=== PATIENT | female | born 1970 | race Caucasian/White ===

== ENCOUNTER 2016-05-22 16:50 | Observation (INO) ==
[2016-05-22] MEDS ORDERED: 0.9 % Sodium Chloride 1,000 ML IVC ONE (17:12)
[2016-05-22] MEDS ORDERED: Vancomycin 1,000 MG VIAL IVPB ONE (17:12)
[2016-05-22] MEDS ORDERED: Lidocaine 1% 20 ML MDV INFILT ONE (17:14)
--- NOTE | 2016-05-22 17:48 | Emergency Department Note ---
Disposition Clinical Impression: Abscess of skin or subcutaneous tissue, Cellulitis and abscess of hand Disposition: Still a Patient Condition: Good Referrals: NO,PCP [Primary Care Provider] - Forms: ED Satisfaction Letter General Adult HPI - General Chief complaint: ED Skin/Abscess/Foreign Body Stated complaint: multiple abscess Time Seen by Provider: 05/22/16 17:00 Source: patient Limitations: no limitations Nursing Notes Reviewed: Yes Vital Signs Reviewed: Yes - History of Present Illness Pain Scale: 10 - Related Data Previous Rx's Medication Instructions Recorded HydrOXYzine Pamoate 25 mg PO TID PRN 4 Days 12/08/15 Pramoxine HCl [Dermarest Eczema] 56.7 gm TP QID PRN #120 ml 12/08/15 PredniSONE 5 mg PO DAILY 12 Days 12/08/15 Allergies Allergy/AdvReac Type Severity Reaction Status Date / Time No Known Allergies Allergy Verified 12/08/15 16:16 Past Medical History - Past Medical History Medical history: Reports: no medical history, non-contributory Psychiatric history: Reports: no psych history - Social History Smoking Status: Current some day smoker Smokeless Tobacco Status: No Alcohol use: Reports: none Drug use: Reports: IVDU Physical Exam - General Limitations: no limitations General appearance: alert Course Vital Signs Temperature 98.2 F 05/22/16 16:52 Pulse Rate 97 05/22/16 16:52 Respiratory Rate 18 05/22/16 16:52 Blood Pressure 147/99 05/22/16 16:52 O2 Sat by Pulse Oximetry 97 05/22/16 16:52 Temperature 98.2 F 05/22/16 16:52 Pulse Rate 97 05/22/16 16:52 Respiratory Rate 18 05/22/16 16:52 Blood Pressure 147/99 05/22/16 16:52 O2 Sat by Pulse Oximetry 97 05/22/16 16:52 Oxygen Delivery Oxygen Delivery Room Air Medical Decision Making - MDM Narrative Medical decision making narrative: I examined this patient and my medical decision-making was reviewed with the ONCOLOGY REGISTRAR/PA/Advanced Practice Nurse/Resident Physician. I agree with the documented findings, disposition and treatment plan as described except to the extent set forth below. Patient evaluated by myself and Dr. Garland. I agree with his evaluation and management plan, suprascapular patients today. Patient resents with multiple abscesses R arm and her leg. One on her calf looks like an I&D visitors she also some small ones on her arm. No CT1 or calf also make sure it is not deep and what appears. I did do I&D's here. Check some lab work. And then reassess. She will most likely need admission. We will then started on vancomycin here also. Check her tetanus status and then reassess. 1827 hrs.: I&D was done of both abscesses on her hand with janes pus returned. She also had one done on her right calf which also had janes pus returned. She has another large lesion on the anterior portion of her right man but this one Roger been I&D did not has drainage from the area. And out on a CT of her hand IV antibiotics started. - Lab Data Result diagrams: 05/22/16 18:40 Lab Results 05/22/16 Range/Units 18:40 WBC 25.1 H (4.3-11.1) K/mcL RBC 5.33 H (3.82-4.97) M/mcL Hgb 15.5 H (11.5-15.4) g/dL Hct 45.5 H (35.3-44.9) % MCV 85.4 (83.0-100.0) fL MCH 29.1 (28.0-33.3) pg MCHC 34.1 (31.6-35.5) g/dL RDW 12.8 (11.5-14.5) % Plt Count 535 H (140-400) K/mcL MPV 9.9 (9.4-12.4) fL Immature Gran % 0.6 (0-4) % Seg Neutrophils % 79.7 % Lymphocytes % 14.3 % Monocytes % 4.5 % Eosinophils % 0.6 % Basophils % 0.3 % Neutrophils # 20.0 H (1.6-8.9) K/mcL Lymphocytes # 3.6 (0.6-4.6) K/mcL Monocytes # 1.1 (0.0-1.3) K/mcL Eosinophils # 0.2 (0.0-0.6) K/mcL Basophils # 0.1 (0.0-0.2) K/mcL
--- NOTE | 2016-05-22 18:44 | Emergency Department Note ---
Disposition Clinical Impression: Cellulitis and abscess of hand Abscess of skin or subcutaneous tissue Qualifiers: Site of cutaneous abscess: extremity Site of cutaneous abscess of extremity: hand Laterality: right Qualified Code(s): L02.511 - Cutaneous abscess of right hand Disposition: Still a Patient Condition: Good Referrals: NO,PCP [Primary Care Provider] - Forms: ED Satisfaction Letter Skin/Abscess/FB HPI Chief complaint: ED Skin/Abscess/Foreign Body Stated complaint: multiple abscess Time Seen by Provider: 05/22/16 17:00 Source: patient Mode of arrival: ambulatory Limitations: no limitations Nursing Notes Reviewed: Yes Vital Signs Reviewed: Yes HPI Narrative: Patient presents emergency room for evaluation of abscess on her left hand and left wrist. She also has one on the inside of her right lower leg and the anterior aspect of her left man. Patient has had intermittent fevers and chills denies any cough, congestion denies chest measures about headache or vision changes. Main complaint of the abscesses and swelling in her left hand. Pt Subjective Complaint: abscess/boil Onset (ago): day(s) Tetanus Up to Date: yes (patient had said the shot 2 years ago) Location: L hand, LLE, RLE Severity: moderate Severity scale (1-10): 6 Quality: stabbing, sharp Consistency: constant Improves with: none Worsens with: palpation, movement Context: IVDA Associated symptoms: Reports: fever, chills, arthralgias Treatments prior to arrival: bandages, attempted to drain pus at home Previous Rx's Medication Instructions Recorded HydrOXYzine Pamoate 25 mg PO TID PRN 4 Days 12/08/15 Pramoxine HCl [Dermarest Eczema] 56.7 gm TP QID PRN #120 ml 12/08/15 PredniSONE 5 mg PO DAILY 12 Days 12/08/15 Allergies Allergy/AdvReac Type Severity Reaction Status Date / Time No Known Allergies Allergy Verified 12/08/15 16:16 All systems ED: reviewed and negative except as stated. Constitutional: Reports: fever, chills. Denies: weakness Cardiovascular: Denies: chest pain, palpitations, dyspnea on exertion Respiratory: Denies: cough, dyspnea, wheezes Gastrointestinal: Denies: abdominal pain, nausea, vomiting, diarrhea Genitourinary: Denies: urgency, dysuria, frequency Musculoskeletal: Denies: back pain, neck pain, joint swelling (Old) Integumentary: Reports: lesions Neurological: Denies: headache, weakness Past Medical History - Past Medical History Attestation: Yes The following information was validated with the patient. Source: patient Medical history: Reports: no medical history, non-contributory Psychiatric history: Reports: no psych history - Social History Smoking Status: Current some day smoker Smokeless Tobacco Status: No Alcohol use: Reports: none Drug use: Reports: IVDU Physical Exam - General Limitations: no limitations General appearance: alert - Head Head exam: atraumatic, normocephalic, normal inspection - Chest Chest inspection: Present: normal inspection, symmetric chest wall rise. Absent : tenderness - Respiratory Respiratory exam: Present: normal lung sounds bilaterally - Cardiovascular Cardiovascular exam: Present: regular rate, normal rhythm, normal heart sounds - Extremities Exam Extremities exam: Present: normal capillary refill, other (Patient has what appears to be an abscess on the dorsum of the left hand over the fourth metacarpal. She also has an abscess on the aspect of the wrist. There is concern for significant swelling distal to the flexor and extensor retinaculum. She does have capillary refill in the fingers but she has significant pain with extension of the fingers in extension of the wrist. Incision is still intact as within an necrotic area on the anterior aspect of the left man unable to visualize bone deep tissue involvement is visualized.) - Back Exam Back exam: Present: normal inspection, full ROM. Absent: tenderness - Neurological Exam Neurological exam: Present: alert, oriented X3, CN II-XII intact, normal gait - Psychiatric Psychiatric exam: Present: normal affect, normal mood - Skin Skin exam: Present: warm, dry, intact, normal color, other (See extremity note) Course Course Narrative: Patient seen and examined the time of arrival to the emergency room. See history of present illness. This is a 35-year-old female who has a history of IV drug abuse. She recently started using again approximately 3 weeks ago because she ran out of her Suboxone. Vital signs on presentation are stable she is afebrile. Patient has been complaining of fevers and chills at home but denies chest pain shortness of breath headache vision changes nausea vomiting or diarrhea. Main issue for her presentation here today is abscess formation on the back of her left hand and left wrist along with significant swelling and pain in her extremity. She also has 2 abscesses in the bilateral lower extremities that she wanted evaluated. Patient is up-to-date on tetanus within last 2 years. She does have hepatitis C. She does not have any other infectious etiologies. She has no allergies to note at this time. Patient had ultrasound completed the bedside by myself confirming nonvascular fluid accumulations on the dorsum of the hand and on the lateral aspect of the wrist. She also has a fluid accumulation in the medial aspect of the right calf. The area on the left man appears to be necrotic and open with deep tissue involvement but unable to visualize bony anatomy. Patient does have redness and drainage around the area but no signs of significant warmth. She has range of motion of the ankles and is normal neuromotor function. Patient is concerning for possible infected deep tissue areas of the left upper extremity and left lower extremity. She will be started on IV antibiotics of blood cultures drawn showed a chest x-ray EKG and basic laboratory workup added on as well. She also CT imaging of the left upper extremity and left lower extremity. Pain medication to be provided as well. Patient will have bedside I &D completed and then most likely will require admission to the hospital. Patient was informed of this course of care and definitive plan she is comfortable with this at this time - Reevaluation(s) Reevaluation #1: edside I&D completed on the dorsum of the hand as well as the wrist and on the medial aspect of the right calf. Large amounts of air on hospital and discharge were expressed from both areas. CV I&D notes dictated in the procedure section. IV vancomycin and gentamicin ordered for this patient this time. CT imaging is pending. Labs are still coming back at this point. Patient will be signed out to the [facility] physicians Dr. Juwan Perry. Detailed review of patient's presentation symptoms and medical history will be discussed. He will complete the course of care and admission to the hospital once the laboratory and imaging results are completed. Time: 18:49 Vital Signs Temperature 98.2 F 05/22/16 16:52 Pulse Rate 97 05/22/16 16:52 Respiratory Rate 18 05/22/16 16:52 Blood Pressure 147/99 05/22/16 16:52 O2 Sat by Pulse Oximetry 97 05/22/16 16:52 Temperature 98.2 F 05/22/16 16:52 Pulse Rate 97 05/22/16 16:52 Respiratory Rate 18 05/22/16 16:52 Blood Pressure 147/99 05/22/16 16:52 O2 Sat by Pulse Oximetry 97 05/22/16 16:52 Oxygen Delivery Oxygen Delivery Room Air Procedures - Abscess I/D Consent obtained: verbal consent Site: upper extremity, hand, lower extremity Side (if applicable): left, right Local Anesthetic: lidocaine 1% Amount of Anesthesia Used (mL): 5 Technique: incised with #11 blade Amount of fluid: 50 Irrigation: No Packing used?: none Complications: pain, bleeding - Ultrasound-Other Narrative: Bedside ultrasound performed confirming 3 areas of fluid accumulation on the surface of the skin. No vascular pulsatile areas were noted. Doppler was negative for pulsatile areas. Critical Care Time Critical Care Time: Yes Total Critical Care Time: 30 Attestation: Independent of procedures and medical management
[2016-05-22 18:49] LABS: Basophils # 0.1 K/mcL (0.0-0.2); Basophils % 0.3 %; Eosinophils # 0.2 K/mcL (0.0-0.6); Eosinophils % 0.6 %; Hematocrit 45.5 % (35.3-44.9); Hemoglobin 15.5 g/dL (11.5-15.4); Immature Granulocytes % 0.6 % (0-4); Lymphocytes # 3.6 K/mcL (0.6-4.6); Lymphocytes % 14.3 %; Mean Corpuscular HGB Conc 34.1 g/dL (31.6-35.5); Mean Corpuscular Hemoglobin 29.1 pg (28.0-33.3); Mean Corpuscular Volume 85.4 fL (83.0-100.0); Mean Platelet Volume 9.9 fL (9.4-12.4); Monocytes # 1.1 K/mcL (0.0-1.3); Monocytes % 4.5 %; Platelet Count 535 K/mcL (140-400); Red Blood Count 5.33 M/mcL (3.82-4.97); Red Cell Distribution Width 12.8 % (11.5-14.5); Segmented Neutrophils % 79.7 %
[2016-05-22] MEDS ORDERED: Vancomycin 1,000 MG in D5% in Water 250 ML IVPB ONE (18:54)
[2016-05-22 18:58] LABS: INR 1.1; Prothrombin Time 12.2 Seconds (9.4-12.1)
[2016-05-22 19:00] LABS: Activated Partial Thrombo Time 34.5 Seconds (26.0-36.0)
[2016-05-22] MEDS ORDERED: Gentamicin 420 MG in 0.9 % Sodium Chloride 100 ML IVPB ONE (19:00)
[2016-05-22 19:03] LABS: BUN/Creatinine Ratio 9 (6-26); Blood Urea Nitrogen 7 mg/dL (7-20); Calcium 9.9 mg/dL (8.6-10.8); Carbon Dioxide 19 mEq/L (19-29); Chloride 107 mEq/L (98-109); Glucose 111 mg/dL (70-99); Osmolality,Calculated 287 (280-300); Potassium 4.3 mEq/L (3.5-4.5); Sodium 139 mEq/L (136-145); eGFR For African Americans > 60 (> 60); eGFR For Non-African Americans > 60 (> 60)
[2016-05-22 19:05] LABS: Albumin 3.5 g/dL (3.5-5.0); Albumin/Globulin Ratio 0.7 (1.1-2.2); Bilirubin,Direct 0.3 mg/dL (0.0-0.5); Bilirubin,Indirect 0.2 mg/dL (0.0-1.2); Bilirubin,Total 0.5 mg/dL (0.2-1.2); Globulin 5.2 g/dL (2.4-3.5); Total Protein 8.7 g/dL (6.0-8.3)
[2016-05-22 19:36] LABS: Bilirubin,Urine Negative (Negative); Blood,Urine Small (Negative); Clarity,Urine Clear (Clear); Color,Urine Yellow (Yellow); Glucose,Urine (UA) Normal (Normal); Ketones,Urine Negative (Negative); Leukocyte Esterase,Urine Negative (Negative); Nitrite,Urine Negative (Negative); PH,Urine 5.5 pH Units (5.0-8.0); Protein,Urine Negative (Neg-Trace); Specific Gravity,Urine 1.023 (1.010-1.025); Urobilinogen,Urine Normal (Normal)
[2016-05-22 19:37] LABS: Bacteria,Urine None Seen per hpf (None-Few); Hyaline Casts,Urine Few per lpf (None-Few); Squamous Epithelial Cell,Urine Many per lpf (None-Few); WBC,Urine 0-3 per hpf (0-3)
--- NOTE | 2016-05-22 20:38 | Emergency Department Note ---
Disposition Clinical Impression: Cellulitis and abscess of hand Abscess of skin or subcutaneous tissue Qualifiers: Site of cutaneous abscess: extremity Site of cutaneous abscess of extremity: hand Laterality: right Qualified Code(s): L02.511 - Cutaneous abscess of right hand Disposition: Admitted As Inpatient Condition: Fair Referrals: NO,PCP [Primary Care Provider] - Forms: ED Satisfaction Letter General Adult HPI - General Chief complaint: ED Skin/Abscess/Foreign Body Stated complaint: multiple abscess Time Seen by Provider: 05/22/16 17:00 Source: patient Mode of arrival: ambulatory Limitations: no limitations Nursing Notes Reviewed: Yes Vital Signs Reviewed: Yes - History of Present Illness Pain Scale: 10 - Related Data Previous Rx's Medication Instructions Recorded HydrOXYzine Pamoate 25 mg PO TID PRN 4 Days 12/08/15 Pramoxine HCl [Dermarest Eczema] 56.7 gm TP QID PRN #120 ml 12/08/15 PredniSONE 5 mg PO DAILY 12 Days 12/08/15 Allergies Allergy/AdvReac Type Severity Reaction Status Date / Time No Known Allergies Allergy Verified 12/08/15 16:16 Constitutional: Reports: fever, chills. Denies: weakness Cardiovascular: Denies: chest pain, palpitations, dyspnea on exertion Respiratory: Denies: cough, dyspnea, wheezes Gastrointestinal: Denies: abdominal pain, nausea, vomiting, diarrhea Genitourinary: Denies: urgency, dysuria, frequency Musculoskeletal: Denies: back pain, neck pain, joint swelling (Old) Integumentary: Reports: lesions Neurological: Denies: headache, weakness Past Medical History - Past Medical History Medical history: Reports: no medical history, non-contributory Psychiatric history: Reports: no psych history - Social History Smoking Status: Current some day smoker Smokeless Tobacco Status: No Alcohol use: Reports: none Drug use: Reports: IVDU Physical Exam - General Limitations: no limitations General appearance: alert Course Course Narrative: 45-year-old female who was signed out to me by Dr. Garland. She is a IV drug user with heroin. She has had regression of multiple abscesses. Abscess location is left hand and left wrist, left lower extremity and right lower extremity. All the abscesses were I&D. She does have some extensive cellulitis. IV antibiotics have been started of vancomycin and gentamicin. Pending CT scan and she will be admitted to the hospital. - Reevaluation(s) Reevaluation #1: CT scan reveals cellulitis-myositis. No necrotizing fasciitis seen. Will admit. Hospitalist jacqueline. Reevaluation #2: Accepted by Catarina Vital Signs Temperature 98.2 F 05/22/16 16:52 Pulse Rate 97 05/22/16 16:52 Respiratory Rate 18 05/22/16 16:52 Blood Pressure 147/99 05/22/16 16:52 O2 Sat by Pulse Oximetry 97 05/22/16 16:52 Temperature 98.2 F 05/22/16 16:52 Pulse Rate 88 05/22/16 21:19 Respiratory Rate 16 05/22/16 21:19 Blood Pressure 128/85 05/22/16 21:19 O2 Sat by Pulse Oximetry 97 05/22/16 21:19 Oxygen Delivery Oxygen Delivery Room Air Medical Decision Making - Lab Data Lab results reviewed: Yes I reviewed the patient's lab results. Result diagrams: 05/22/16 18:40 05/22/16 18:40 Lab Results 05/22/16 05/22/16 05/22/16 Range/Units 18:40 18:40 18:40 WBC 25.1 H (4.3-11.1) K/mcL RBC 5.33 H (3.82-4.97) M/mcL Hgb 15.5 H (11.5-15.4) g/dL Hct 45.5 H (35.3-44.9) % MCV 85.4 (83.0-100.0) fL MCH 29.1 (28.0-33.3) pg MCHC 34.1 (31.6-35.5) g/dL RDW 12.8 (11.5-14.5) % Plt Count 535 H (140-400) K/mcL MPV 9.9 (9.4-12.4) fL Immature Gran % 0.6 (0-4) % Seg Neutrophils % 79.7 % Lymphocytes % 14.3 % Monocytes % 4.5 % Eosinophils % 0.6 % Basophils % 0.3 % Neutrophils # 20.0 H (1.6-8.9) K/mcL Lymphocytes # 3.6 (0.6-4.6) K/mcL Monocytes # 1.1 (0.0-1.3) K/mcL Eosinophils # 0.2 (0.0-0.6) K/mcL Basophils # 0.1 (0.0-0.2) K/mcL PT 12.2 H (9.4-12.1) Seconds INR 1.1 APTT 34.5 (26.0-36.0) Seconds Sodium 139 (136-145) mEq/L Potassium 4.3 (3.5-4.5) mEq/L Chloride 107 (98-109) mEq/L Carbon Dioxide 19 (19-29) mEq/L BUN 7 (7-20) mg/dL Creatinine 0.77 (0.57-1.11) mg/dL Est GFR ( Amer) > 60 (> 60) Est GFR (Non-Af Amer) > 60 (> 60) BUN/Creatinine Ratio 9 (6-26) Glucose 111 H (70-99) mg/dL Calculated Osmolality 287 (280-300) Lactic Acid (0.5-2.2) mmol/L Calcium 9.9 (8.6-10.8) mg/dL Total Bilirubin (0.2-1.2) mg/dL Direct Bilirubin (0.0-0.5) mg/dL Indirect Bilirubin (0.0-1.2) mg/dL AST (5-34) Units/L ALT (0-55) Units/L Alkaline Phosphatase (38-126) Units/L Serum Total Protein (6.0-8.3) g/dL Albumin (3.5-5.0) g/dL Globulin (2.4-3.5) g/dL Albumin/Globulin Ratio (1.1-2.2) Urine Color (Yellow) Urine Clarity (Clear) Urine pH (5.0-8.0) pH Units Ur Specific Parnell (1.010-1.025) Urine Protein (Neg-Trace) mg/dL Urine Glucose (UA) (Normal) mg/dL Urine Ketones (Negative) mg/dL Urine Blood (Negative) Urine Nitrite (Negative) Urine Bilirubin (Negative) Urine Urobilinogen (Normal) mg/dL Ur Leukocyte Esterase (Negative) Urine Microscopic RBC (0-3) per hpf Urine Microscopic WBC (0-3) per hpf Ur Squamous Epith Cells (None-Few) per lpf Urine Bacteria (None-Few) per hpf Hyaline Casts (None-Few) per lpf Ur Culture Indicated? (NO) 05/22/16 05/22/16 05/22/16 Range/Units 18:40 18:40 19:22 WBC (4.3-11.1) K/mcL RBC (3.82-4.97) M/mcL Hgb (11.5-15.4) g/dL Hct (35.3-44.9) % MCV (83.0-100.0) fL MCH (28.0-33.3) pg MCHC (31.6-35.5) g/dL RDW (11.5-14.5) % Plt Count (140-400) K/mcL MPV (9.4-12.4) fL Immature Gran % (0-4) % Seg Neutrophils % % Lymphocytes % % Monocytes % % Eosinophils % % Basophils % % Neutrophils # (1.6-8.9) K/mcL Lymphocytes # (0.6-4.6) K/mcL Monocytes # (0.0-1.3) K/mcL Eosinophils # (0.0-0.6) K/mcL Basophils # (0.0-0.2) K/mcL PT (9.4-12.1) Seconds INR APTT (26.0-36.0) Seconds Sodium (136-145) mEq/L Potassium (3.5-4.5) mEq/L Chloride (98-109) mEq/L Carbon Dioxide (19-29) mEq/L BUN (7-20) mg/dL Creatinine (0.57-1.11) mg/dL Est GFR ( Amer) (> 60) Est GFR (Non-Af Amer) (> 60) BUN/Creatinine Ratio (6-26) Glucose (70-99) mg/dL Calculated Osmolality (280-300) Lactic Acid 1.4 (0.5-2.2) mmol/L Calcium (8.6-10.8) mg/dL Total Bilirubin 0.5 (0.2-1.2) mg/dL Direct Bilirubin 0.3 (0.0-0.5) mg/dL Indirect Bilirubin 0.2 (0.0-1.2) mg/dL AST 26 (5-34) Units/L ALT 33 (0-55) Units/L Alkaline Phosphatase 210 H (38-126) Units/L Serum Total Protein 8.7 H (6.0-8.3) g/dL Albumin 3.5 (3.5-5.0) g/dL Globulin 5.2 H (2.4-3.5) g/dL Albumin/Globulin Ratio 0.7 L (1.1-2.2) Urine Color Yellow (Yellow) Urine Clarity Clear (Clear) Urine pH 5.5 (5.0-8.0) pH Units Ur Specific Parnell 1.023 (1.010-1.025) Urine Protein Negative (Neg-Trace) mg/dL Urine Glucose (UA) Normal (Normal) mg/dL Urine Ketones Negative (Negative) mg/dL Urine Blood Small H (Negative) Urine Nitrite Negative (Negative) Urine Bilirubin Negative (Negative) Urine Urobilinogen Normal (Normal) mg/dL Ur Leukocyte Esterase Negative (Negative) Urine Microscopic RBC 5-15 H (0-3) per hpf Urine Microscopic WBC 0-3 (0-3) per hpf Ur Squamous Epith Cells Many H (None-Few) per lpf Urine Bacteria None Seen (None-Few) per hpf Hyaline Casts Few (None-Few) per lpf Ur Culture Indicated? NO (NO) Attestation Statement - Attestation Attestation: I, Carl Whipple MD, personally performed a history and physical exam of the patient and discussed their management with the resident. I reviewed the resident's note and agree with the documented findings, medical decision making , and plan of care. This patient was signed out at shift change from Dr. Awad and Dr. Garland. Please refer to their notes for complete details of history and physical examination. At shift change the patient is just awaiting CT scan results and admission. CT is returned showing primarily cellulitis with some tiny abscess areas. These were already incised and drained by Dr. Garland. On examination patient is a well-developed well-nourished female in no acute distress. She is alert and oriented 3. There is no cyanosis or diaphoresis. There is moderate swelling of the left hand with an opened abscess on the dorsum of the left hand and also an abscess on the ulnar aspect of the left wrist. She also has an ulceration of the left lower leg with moderate surrounding erythema and tenderness. CT did not show any evidence of cellulitis. Labs and CT report reviewed. The hospitalist, Dr. Elmore, was consulted and accepted admission of the patient.
[2016-05-22] MEDS ORDERED: Acetaminophen 325 MG TABLET PO PRN (22:07)
[2016-05-22] MEDS ORDERED: Ondansetron 4 MG/2 ML VIAL IVP PRN (22:07)
[2016-05-22] MEDS ORDERED: Naloxone 0.4 MG/ML INJ IVP PRN (22:07)
--- NOTE | 2016-05-22 23:06 | Internal Med History&Physical ---
Date of Encounter: 05/22/16 Time of Encounter: 23:02 Assessment and Plan (1) Cellulitis and abscess of hand Current visit: Yes Status: Acute Continue Vancomycin and Zosyn No osteomyelitis per imaging IVF hydration pain control Surgery for drainage High risk for progression to sepsis Follow cultures of drainage (2) Multiple abscesses of both legs Current visit: Yes Status: Acute As above (3) Opioid abuse Current visit: Yes Status: Acute Monitor for withdrawals Zofran for vomiting Clonidine/benzo for HTN/Tachycardia prn Internal Medicine - H&P: HPI Chief complaint: Multiple absecces Admitted From: Home Plans for Post Hospital Care: Home History of present illness: Ms. Smith is a 45 year old female with IVDU presented with complains of multiple abscesses at points where she has been injecting her self with heroin for the past 2 weeks. She is known opiate dependence She reports associated subjective chills and fever. She describes the abscesses as located in her extremities, bilaterally and getting worse hence he representation. She denies cough , chest pain, difficulty breathing, nausea, vomiting, abdominal pain, changes in bowel or urinary habots She is s/p hysterectomy, denies symptoms She had attempts of incision and drainage of the abscesses in the ER Work up shows leukocytosis with left shift, Renal function and LFT otherwise unremarkable. CK WNL. CT shows Left 4th metacrapal region and ulnar stylodi region with cellulitis with abscess collection. Left lower extremity also with ulcer and surrounding cellulitis and or myositis. CXR shows n acute pulmonary processes Past Med Surg Social Fam HX - Past Medical History Medical history: no medical history, non-contributory Psychiatric history: no psych history - Social History Smoking Status: Current some day smoker Smokeless Tobacco Status: No Alcohol use: none Drug use: IVDU Internal Medicine - H&P: Meds Multivitamin [Multi-Day Vitamins] 1 tab PO DAILY 05/22/16 [History] Allergies No Known Allergies Allergy (Verified 12/08/15 16:16) All Systems PM: A 10-system review of systems was performed and is negative for pertinent findings except as documented above in the HPI. - Constitutional Constitutional: as per HPI - EENT Eyes: as per HPI Ears: as per HPI Nose, mouth and throat: as per HPI - Breasts Breasts: as per HPI - Cardiovascular Cardiovascular ROS IM: as per HPI - Respiratory Respiratory: as per HPI - Gastrointestinal Gastrointestinal: as per HPI - Genitourinary Genitourinary: as per HPI - Musculoskeletal Musculoskeletal ROS IM: as per HPI - Integumentary Integumentary IM: as per HPI - Neurological Neurological ROS: as per HPI - Psychiatric Psychiatric: as per HPI - Endocrine Endocrine IM: as per HPI - Hematologic/Lymphatic Hematologic/Lymphatic: as per HPI - Allergic/Immunologic Allergic/Immunologic: as per HPI - Constitutional Vitals: Temp Pulse Resp BP Pulse Ox 98.2 F 88 18 110/80 97 05/22/16 16:52 05/22/16 21:19 05/22/16 22:07 05/22/16 22:07 05/22/16 21:19 General appearance: Present: mild distress, A&O X 3, pleasant - Head Head exam: Present: atraumatic, normocephalic - Eye Eye exam: Present: PERRL, conjuntiva pink, sclera anicteric Pupils: Present: PERRL - Neck Neck exam general surgery: Present: supple, trachea midline. Absent: lymphadenopathy - Respiratory Respiratory exam: Present: CTAB. Absent: accessory muscle use, rales, rhonchi, wheezes - Cardiovascular Cardiovascular exam: Present: RRR, +S1, +S2. Absent: diastolic murmur, gallop, rubs, systolic murmur - GI/Abdominal GI/Abdominal exam: Present: normal bowel sounds, soft, no peritoneal signs. Absent: distended, tenderness - Extremities Exam Additional comments: Left upper extremity with abscesses from the fore-arm up to the wrist and hand completely swollen and erythematous, tender, two nicked positions from ER noted not draining, surrounding fluctuancy. Left leg man region with very deep ulcer draining purulent fluid, with surrounding cellulitis, no signs/symptoms of compartment syndrome Several other abscesses in the Right upper thigh, left and right dorsal foot surfaces. - Neurological Exam Neurological exam: Present: CN II-XII intact, oriented X3, no focal deficits. Absent: pronater drift, facial droop, speech deficit Internal Med - H&P Results - Labs CBC & Chem 7: 05/22/16 18:40 05/22/16 18:40
[2016-05-22] MEDS: Piperacillin/Tazobactam 3.375 GM in D5% in Water (Mini-Bag+) 100 ML IVPB SCH (23:51)
[2016-05-22] MEDS: 0.9 % Sodium Chloride 1,000 ML IVC SCH (23:51)
[2016-05-22] MEDS: *HR* Morphine 2 MG/ML SYRINGE IVP PRN (23:51)
[2016-05-23 03:39] LABS: Basophils # 0.1 K/mcL (0.0-0.2); Basophils % 0.3 %; Eosinophils # 0.3 K/mcL (0.0-0.6); Eosinophils % 1.8 %; Hematocrit 39.5 % (35.3-44.9); Immature Granulocytes % 0.3 % (0-4); Lymphocytes % 20.7 %; Mean Corpuscular HGB Conc 33.4 g/dL (31.6-35.5); Mean Corpuscular Hemoglobin 28.9 pg (28.0-33.3); Mean Corpuscular Volume 86.6 fL (83.0-100.0); Mean Platelet Volume 10.1 fL (9.4-12.4); Monocytes # 1.3 K/mcL (0.0-1.3); Monocytes % 6.7 %; Neutrophils # 13.4 K/mcL (1.6-8.9); Platelet Count 425 K/mcL (140-400); Red Blood Count 4.56 M/mcL (3.82-4.97); Segmented Neutrophils % 70.2 %
[2016-05-23 03:40] LABS: Hemoglobin 13.2 g/dL (11.5-15.4)
[2016-05-23 04:01] LABS: BUN/Creatinine Ratio 8 (6-26); Blood Urea Nitrogen 6 mg/dL (7-20); Carbon Dioxide 23 mEq/L (19-29); Chloride 106 mEq/L (98-109); Glucose 98 mg/dL (70-99); Potassium 4.1 mEq/L (3.5-4.5); Sodium 140 mEq/L (136-145); eGFR For African Americans > 60 (> 60); eGFR For Non-African Americans > 60 (> 60)
[2016-05-23 04:02] LABS: Osmolality,Calculated 288 (280-300)
[2016-05-23] MEDS: *HR* Morphine 2 MG/ML SYRINGE IVP PRN (04:06)
[2016-05-23] MEDS ORDERED: Vancomycin 1,000 MG in D5% in Water 250 ML IVPB SCH (06:00)
[2016-05-23] MEDS: Vancomycin 1,000 MG in D5% in Water 250 ML IVPB SCH ×2 (06:10→18:04)
[2016-05-23] MEDS: *HR* HYDROcodone/Acet 5/325 mg TABLET PO PRN ×3 (06:11→15:34)
[2016-05-23] MEDS: Piperacillin/Tazobactam 3.375 GM in D5% in Water (Mini-Bag+) 100 ML IVPB SCH ×3 (08:33→23:54)
[2016-05-23] MEDS: 0.9 % Sodium Chloride 1,000 ML IVC SCH ×2 (10:05→19:57)
--- NOTE | 2016-05-23 13:25 | Event Note ---
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 Patient seen and examined with Dr. Kwok. Recommended continuation of IV antibiotics. Not recommending further I&D at this time.
--- NOTE | 2016-05-23 14:25 | Internal Med Progress Note ---
Date of Encounter: 05/23/16 Time of Encounter: 10:00 - Assessment and plan (1) Cellulitis and abscess of hand Current Visit: Yes Status: Acute Assessment and plan: Had I/D in ER, continue vancomycin and Zosyn. Follow-up WBC. Surgical consult appreciated. Patient is at high risk because she is on vancomycin, need close monitoring (2) Multiple abscesses of both legs Current Visit: Yes Status: Acute Assessment and plan: Had I and D in ER. Continue antibiotics. 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 Her past medical history is significant for history of IV drug use, history of hysterectomy. Patient was seen and examined. She is awake, alert, oriented 3. No fever, her vital signs stable. She had I&D ER for her abscesses. Surgical consult appreciated. We will continue antibiotic and close monitoring. - Constitutional Vitals: Temp Pulse Resp BP Pulse Ox 98.3 F 73 18 112/73 96 05/23/16 11:45 05/23/16 11:45 05/23/16 11:45 05/23/16 11:45 05/23/16 11:45 General appearance: Present: mild distress, A&O X 3, pleasant - Head Head exam: Present: atraumatic, normocephalic - Eye Eye exam: Present: PERRL, conjuntiva pink, sclera anicteric Pupils: Present: PERRL - Neck Neck exam general surgery: Present: supple, trachea midline. Absent: lymphadenopathy - Respiratory Respiratory exam: Present: CTAB. Absent: accessory muscle use, rales, rhonchi, wheezes - Cardiovascular Cardiovascular exam: Present: RRR, +S1, +S2. Absent: diastolic murmur, gallop, rubs, systolic murmur - GI/Abdominal GI/Abdominal exam: Present: normal bowel sounds, soft, no peritoneal signs. Absent: distended, tenderness - Extremities Exam Extremities exam: Present: warm, radial pulses palpable and symetrical. Absent : calf tenderness, cyanotic, pedal edema Additional comments: Left hand and both legs abscess s/p I/D - Neurological Exam Neurological exam: Present: CN II-XII intact, oriented X3, no focal deficits. Absent: pronater drift, facial droop, speech deficit - Skin Skin exam: Present: dry, intact Internal Medicine: Result - Labs CBC & Chem 7: 05/23/16 03:22 05/23/16 03:22 Labs: Short CBC 05/23/16 Range/Units 03:22 WBC 19.1 H (4.3-11.1) K/mcL Hgb 13.2 D (11.5-15.4) g/dL Hct 39.5 (35.3-44.9) % Plt Count 425 H (140-400) K/mcL Neutrophils # 13.4 H (1.6-8.9) K/mcL BMP 05/23/16 03:22 Sodium 140 Potassium 4.1 Chloride 106 Carbon Dioxide 23 BUN 6 L Creatinine 0.76 Glucose 98 Calcium 9.0 - ABG Interpretation ABG results: PT/INR, D-dimer PT 12.2 Seconds (9.4-12.1) H 05/22/16 18:40 Consult Discharge Plan - Plan Referrals: NO,PCP [Primary Care Provider] -
[2016-05-23] MEDS ORDERED: *HR* Methadone 10 MG TABLET PO PRN (17:15)
[2016-05-23] MEDS ORDERED: diazePAM 10 MG TABLET PO PRN (17:17)
[2016-05-23] MEDS: *HR* Heparin 5,000 UNIT/ML VIAL SQ SCH (18:05)
[2016-05-23] MEDS: *HR* HYDROmorphone 2 MG/ML SYRINGE IVP PRN ×3 (18:05→22:42)
[2016-05-23] MEDS: diazePAM 10 MG TABLET PO SCH (20:33)
[2016-05-24] MEDS: *HR* HYDROcodone/Acet 5/325 mg TABLET PO PRN (00:52)
[2016-05-24] MEDS: *HR* HYDROmorphone 2 MG/ML SYRINGE IVP PRN ×9 (00:53→21:46)
[2016-05-24] MEDS: 0.9 % Sodium Chloride 1,000 ML IVC SCH ×2 (04:37→05:07)
[2016-05-24] MEDS: *HR* Heparin 5,000 UNIT/ML VIAL SQ SCH ×2 (06:41→18:39)
[2016-05-24 07:15] LABS: Basophils % 0.4 %; Eosinophils # 0.4 K/mcL (0.0-0.6); Eosinophils % 4.3 %; Immature Granulocytes % 0.3 % (0-4); Lymphocytes # 3.4 K/mcL (0.6-4.6); Mean Corpuscular HGB Conc 32.4 g/dL (31.6-35.5); Mean Corpuscular Hemoglobin 28.8 pg (28.0-33.3); Mean Corpuscular Volume 88.9 fL (83.0-100.0); Mean Platelet Volume 11.1 fL (9.4-12.4); Monocytes # 0.8 K/mcL (0.0-1.3); Monocytes % 8.3 %; Neutrophils # 5.3 K/mcL (1.6-8.9); Platelet Count 275 K/mcL (140-400); Red Blood Count 4.16 M/mcL (3.82-4.97); Red Cell Distribution Width 13.2 % (11.5-14.5); Segmented Neutrophils % 52.7 %
[2016-05-24 07:30] LABS: BUN/Creatinine Ratio 10 (6-26); Blood Urea Nitrogen 8 mg/dL (7-20); Calcium 8.8 mg/dL (8.6-10.8); Carbon Dioxide 21 mEq/L (19-29); Chloride 109 mEq/L (98-109); Glucose 102 mg/dL (70-99); Osmolality,Calculated 289 (280-300); Potassium 3.8 mEq/L (3.5-4.5); Sodium 140 mEq/L (136-145); eGFR For African Americans > 60 (> 60); eGFR For Non-African Americans > 60 (> 60)
[2016-05-24] MEDS: Piperacillin/Tazobactam 3.375 GM in D5% in Water (Mini-Bag+) 100 ML IVPB SCH ×2 (07:47→15:59)
[2016-05-24] MEDS: diazePAM 10 MG TABLET PO SCH ×2 (07:50→21:47)
[2016-05-24] MEDS: Vancomycin 1,000 MG in D5% in Water 250 ML IVPB SCH ×2 (08:12→19:00)
--- NOTE | 2016-05-24 11:17 | Internal Med Progress Note ---
Date of Encounter: 05/24/16 Time of Encounter: 09:00 - Assessment and plan (1) Cellulitis and abscess of hand Current Visit: Yes Status: Acute Assessment and plan: Had I/D in ER, continue vancomycin and Zosyn. Follow-up WBC. Surgical consult appreciated. Patient is at high risk because she is on vancomycin, need close monitoring (2) Multiple abscesses of both legs Current Visit: Yes Status: Acute Assessment and plan: Had I and D in ER. Continue antibiotics. 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 Her past medical history is significant for history of IV drug use, history of hysterectomy. Patient was seen and examined. She is awake, alert, oriented 3. No fever, her vital signs stable. She had I&D ER for her abscesses. WBC count of the treatment. Surgical consult appreciated, no further intervention needed at this point. We will continue antibiotic and close monitoring. - Constitutional Vitals: Temp Pulse Resp BP Pulse Ox 97.8 F 59 14 99/62 95 05/24/16 06:45 05/24/16 06:45 05/24/16 06:45 05/24/16 06:45 05/24/16 06:45 General appearance: Present: mild distress, A&O X 3, pleasant - Head Head exam: Present: atraumatic, normocephalic - Eye Eye exam: Present: PERRL, conjuntiva pink, sclera anicteric Pupils: Present: PERRL - Neck Neck exam general surgery: Present: supple, trachea midline. Absent: lymphadenopathy - Respiratory Respiratory exam: Present: CTAB. Absent: accessory muscle use, rales, rhonchi, wheezes - Cardiovascular Cardiovascular exam: Present: RRR, +S1, +S2. Absent: diastolic murmur, gallop, rubs, systolic murmur - GI/Abdominal GI/Abdominal exam: Present: normal bowel sounds, soft, no peritoneal signs. Absent: distended, tenderness - Extremities Exam Extremities exam: Present: warm, radial pulses palpable and symetrical. Absent : calf tenderness, cyanotic, pedal edema Additional comments: Multiple abscess on left hand and both legs, S/P I&D - Neurological Exam Neurological exam: Present: CN II-XII intact, oriented X3, no focal deficits. Absent: pronater drift, facial droop, speech deficit - Skin Skin exam: Present: dry, intact Internal Medicine: Result - Labs CBC & Chem 7: 05/24/16 06:42 05/24/16 06:42 Labs: Short CBC 05/24/16 Range/Units 06:42 WBC 10.1 (4.3-11.1) K/mcL Hgb 12.0 (11.5-15.4) g/dL Hct 37.0 (35.3-44.9) % Plt Count 275 (140-400) K/mcL Neutrophils # 5.3 (1.6-8.9) K/mcL BMP 05/24/16 06:42 Sodium 140 Potassium 3.8 Chloride 109 Carbon Dioxide 21 BUN 8 Creatinine 0.82 Glucose 102 H Calcium 8.8 - ABG Interpretation ABG results: PT/INR, D-dimer PT 12.2 Seconds (9.4-12.1) H 05/22/16 18:40 Consult Discharge Plan - Plan Referrals: NO,PCP [Primary Care Provider] -
[2016-05-25] MEDS: *HR* HYDROmorphone 2 MG/ML SYRINGE IVP PRN ×7 (00:29→14:37)
[2016-05-25] MEDS: *HR* HYDROcodone/Acet 5/325 mg TABLET PO PRN ×3 (00:30→09:51)
[2016-05-25] MEDS: Piperacillin/Tazobactam 3.375 GM in D5% in Water (Mini-Bag+) 100 ML IVPB SCH ×2 (00:31→07:56)
[2016-05-25 03:46] LABS: Basophils % 0.4 %; Eosinophils # 0.5 K/mcL (0.0-0.6); Eosinophils % 4.6 %; Hematocrit 38.7 % (35.3-44.9); Hemoglobin 12.7 g/dL (11.5-15.4); Immature Granulocytes % 0.4 % (0-4); Lymphocytes # 3.6 K/mcL (0.6-4.6); Lymphocytes % 36.9 %; Mean Corpuscular HGB Conc 32.8 g/dL (31.6-35.5); Mean Corpuscular Hemoglobin 28.8 pg (28.0-33.3); Mean Corpuscular Volume 87.8 fL (83.0-100.0); Monocytes # 0.7 K/mcL (0.0-1.3); Monocytes % 7.1 %; Neutrophils # 4.9 K/mcL (1.6-8.9); Platelet Count 395 K/mcL (140-400); Red Blood Count 4.41 M/mcL (3.82-4.97); Red Cell Distribution Width 12.9 % (11.5-14.5); Segmented Neutrophils % 50.6 %
[2016-05-25 04:29] LABS: BUN/Creatinine Ratio 12 (6-26); Blood Urea Nitrogen 10 mg/dL (7-20); Carbon Dioxide 24 mEq/L (19-29); Chloride 107 mEq/L (98-109); Glucose 80 mg/dL (70-99); Osmolality,Calculated 292 (280-300); Potassium 3.8 mEq/L (3.5-4.5); Sodium 142 mEq/L (136-145); eGFR For African Americans > 60 (> 60); eGFR For Non-African Americans > 60 (> 60)
[2016-05-25] MEDS: Vancomycin 1,000 MG in D5% in Water 250 ML IVPB SCH (06:20)
[2016-05-25] MEDS: *HR* Heparin 5,000 UNIT/ML VIAL SQ SCH (06:23)
[2016-05-25] MEDS: diazePAM 10 MG TABLET PO SCH (07:56)
[2016-05-25 14:35] VITALS: BP 136/81
[2016-05-25] MEDS ORDERED: *HR* HYDROmorphone 2 MG/ML SYRINGE IVP PRN (15:48)
--- NOTE | 2016-05-25 16:57 | Internal Med Progress Note ---
Date of Encounter: 05/25/16 Time of Encounter: 09:00 - Assessment and plan (1) Cellulitis and abscess of hand Current Visit: Yes Status: Acute Assessment and plan: Had I/D in ER, continue antibiotics, blood culture negative, we will switch to by mouth antibiotics Today. Follow-up WBC. Surgical consult appreciated. (2) Multiple abscesses of both legs Current Visit: Yes Status: Acute Assessment and plan: Had I and D in ER. Continue antibiotics. 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 Her past medical history is significant for history of IV drug use, history of hysterectomy. Patient was seen and examined. She is awake, alert, oriented 3. No fever, her vital signs stable. She had I&D ER for her abscesses. WBC count wnl. Surgical consult appreciated, no further intervention needed at this point. Blood culture negative. We will change antibiotic to by mouth today. Patient needed pain medication every 2 hours. Considering she is a IV drug user, possibly is due to addiction. Will decrease the frequency of pain medication and closely monitor patient. - Constitutional Vitals: Temp Pulse Resp BP Pulse Ox 97.7 F 65 14 136/81 98 05/25/16 14:34 05/25/16 14:34 05/25/16 14:34 05/25/16 14:34 05/25/16 14:34 General appearance: Present: mild distress, A&O X 3, pleasant - Head Head exam: Present: atraumatic, normocephalic - Eye Eye exam: Present: PERRL, conjuntiva pink, sclera anicteric Pupils: Present: PERRL - Neck Neck exam general surgery: Present: supple, trachea midline. Absent: lymphadenopathy - Respiratory Respiratory exam: Present: CTAB. Absent: accessory muscle use, rales, rhonchi, wheezes - Cardiovascular Cardiovascular exam: Present: RRR, +S1, +S2. Absent: diastolic murmur, gallop, rubs, systolic murmur - GI/Abdominal GI/Abdominal exam: Present: normal bowel sounds, soft, no peritoneal signs. Absent: distended, tenderness - Extremities Exam Extremities exam: Present: warm, radial pulses palpable and symetrical. Absent : calf tenderness, cyanotic, pedal edema Additional comments: Abscess S/P I/D on left hand and the bilateral legs. Well dressed - Neurological Exam Neurological exam: Present: CN II-XII intact, oriented X3, no focal deficits. Absent: pronater drift, facial droop, speech deficit - Skin Skin exam: Present: dry, intact Internal Medicine: Result - Labs CBC & Chem 7: 05/25/16 03:25 05/25/16 03:25 Labs: Short CBC 05/25/16 Range/Units 03:25 WBC 9.7 (4.3-11.1) K/mcL Hgb 12.7 (11.5-15.4) g/dL Hct 38.7 (35.3-44.9) % Plt Count 395 (140-400) K/mcL Neutrophils # 4.9 (1.6-8.9) K/mcL BMP 05/25/16 03:25 Sodium 142 Potassium 3.8 Chloride 107 Carbon Dioxide 24 BUN 10 Creatinine 0.86 Glucose 80 Calcium 9.0 - ABG Interpretation ABG results: PT/INR, D-dimer PT 12.2 Seconds (9.4-12.1) H 05/22/16 18:40 Consult Discharge Plan - Plan Referrals: Verna Gordon, SHASHI [Advanced Practice Nurse] - 06/01/16 9:15 am
[2016-05-25] MEDS ORDERED: Aminoglycoside Consult 1 EACH MC ONE (17:29)
--- NOTE | 2016-05-25 18:53 | Event Note ---
Date of Encounter: 05/25/16 Time of Encounter: 18:30 Informed by RN that pt eloped. Daisy das was called but pt was not found in hospital. Advise RN to follow standard protocol for elopement and follow hospital policy.
[2016-05-25] MEDS ORDERED: Doxycycline 100 MG CAPSULE PO SCH (21:00)
--- NOTE | 2016-06-04 11:56 | Discharge Summary ---
Date of Encounter: 06/04/16 Time of Encounter: 09:00 - Discharge Diagnosis (1) Cellulitis and abscess of hand Priority: Primary Status: Acute (2) Multiple abscesses of both legs Priority: Primary Status: Acute (3) Opioid abuse Priority: Secondary Status: Acute (4) DVT prophylaxis Priority: Secondary Status: Acute - Discharge Medications Home Medications: Multivitamin [Multi-Day Vitamins] 1 tab PO DAILY 05/22/16 [History] Allergies/Adverse Reactions: Allergies No Known Allergies Allergy (Verified 12/08/15 16:16) Date of admission: 05/22/16 21:38 Primary care physician: PCP NO Consults: 05/22/16 22:08 Consult to Banking Paralegal [CONS] Routine Reason for SW Consult: IVD use 05/22/16 23:08 Consult to Surgery [CONS] Routine Consulting Provider: [facility] Reason for Consult: Multiple abscesses from IV drug use Call Completed: No Discharging clinician: Aileen Zapata Anticipated date of discharge: 05/25/16 - Patient Status Disposition: Left Against Medical Advice Condition: Fair - Discharge Instructions Follow Up With: Verna Gordon, HIM SPECIALIST [Advanced Practice Nurse] - 06/01/16 9:15 am Interval History: Pt is admitted for multiple abscess on left hand and both legs. She has hx of IV drug abuse. Pt has I/D done in ER. She was treated with iv Abx in hospital. After treatment, her condition has improved. WBC get down, no fever, vitals stable. Abx has switched to po. However, pt eloped in the afternoon on 05/25/16. I was notified by RN. RN called security and Code brawn was called. Pt was not examined b/o elopement (I did see and examined pt in the morning, plz refer the progress note). Tried to contact pt by RN but failed. Hospital course: Ms. Smith is a 45 year old female admitted for multiple abscess on left hand and both legs. She has hx of IV drug abuse. Pt has I/D done in ER. She was treated with iv Abx in hospital. After treatment, her condition has improved. WBC get down, no fever, vitals stable. Abx has switched to po. However, pt eloped in the afternoon on 05/25/16. I was notified by RN. RN called security and Code brawn was called. Pt was not examined b/o elopement(I did see and examined pt in the morning, plz refer the progress note). Tried to contact pt by RN but failed. - Time Spent with Patient Total time spent providing and/or coordinating discharge services: Less than 30 minutes - Constitutional Vitals: Temp Pulse Resp BP Pulse Ox 97.7 F 65 14 136/81 98 05/25/16 14:34 05/25/16 14:34 05/25/16 14:34 05/25/16 14:34 05/25/16 14:34 General appearance: Present: mild distress, A&O X 3, pleasant
== END 2016-05-25 17:30 | disposition left against medical advice (07) ==
LOC: EMEROO 16:50 → 3ANU 16:50
PROVIDERS: ADMIT Internal Medicine; ATTEND Internal Medicine